=== PATIENT | female | born 1980 | race Caucasian/White ===

== ENCOUNTER 2016-06-08 06:11 | Observation (INO) | payer BC ==
[2016-06-07 08:46] VITALS: BMI 31.6
[~2016-06-08 06:11] MED LIST: DEXAMETHASONE SOD PHOSPHATE 10 MG/ML 1 ML VIAL IV ONE; FAMOTIDINE 20 MG/2 ML VIAL IV PRN; HYDROmorphone 1 MG/ML 1 ML SYRINGE IVP PRN; LIDOCAINE 1% 20 ML VIAL (10MG/ML) FOR IV START INTRADERMA PRN; MIDAZOLAM 2 MG/2 ML VIAL IV PRN; SCOPOLAMINE 1.5MG/72HR PATCH TRANSDERM ONE; ceFAZolin 2 GM in SODIUM CHLORIDE 0.9% 100 ML IVPB ONE
[2016-06-08] MEDS: LACTATED RINGERS 1,000 ML IV SCH ×4 (06:45→20:44)
[2016-06-08] MEDS ORDERED: PROPOFOL 10 MG/ML 20 ML VIAL IV ONE (07:35)
[2016-06-08] MEDS ORDERED: MIDAZOLAM 2 MG/2 ML VIAL ONE (07:35)
[2016-06-08] MEDS ORDERED: fentaNYL (PF) 50 MCG/ML 2 ML AMP ONE (07:35)
[2016-06-08] MEDS ORDERED: SUCCINYLCHOLINE CHLORIDE 100 MG/5 ML SYR IV ONE (07:35)
[2016-06-08] MEDS ORDERED: LIDOCAINE 1% INJ 10MG/ML (20 ML MDV) ONE (07:35)
[2016-06-08] MEDS ORDERED: PHENYLEPHRINE-0.9% NACL SYG 1 MG/10 ML SYRINGE ONE (07:35)
[2016-06-08] MEDS ORDERED: MORPHINE SULFATE (PF) 0.3 MG/0.3 ML SYR ONE (07:35)
[2016-06-08] MEDS ORDERED: VASOPRESSIN 20 UNIT/ML 1 ML VIAL IM ONE (08:00)
[2016-06-08] MEDS ORDERED: BACITRACIN 500 UNIT/GM OINT 28.4 GM TUBE TOPICAL ONE (08:00)
[2016-06-08] MEDS ORDERED: ZOLPIDEM 5 MG TAB PO PRN (08:38)
[2016-06-08] MEDS ORDERED: ONDANSETRON 4 MG/2 ML VIAL IVP PRN (08:38)
[2016-06-08] MEDS ORDERED: SIMETHICONE 80 MG CHEWABLE PO PRN (08:38)
[2016-06-08] MEDS ORDERED: Acetaminophen-Codeine 300-30mg TAB PO PRN ×2 (08:38)
[2016-06-08] MEDS ORDERED: METOCLOPRAMIDE 5 MG/ML 2 ML VIAL IVP PRN (08:38)
[2016-06-08] MEDS ORDERED: IBUPROFEN 600 MG TAB PO PRN (08:38)
--- NOTE | 2016-06-08 08:48 | P.OP ---
Date of Procedure: 06/08/16 Preoperative Diagnosis: #1. Menometrorrhagia #2. Dysmenorrhea #3. Failed endometrial ablation Postoperative Diagnosis: Same Procedure(s) Performed: #1. Vaginal hysterectomy Anesthesia: LELA Surgeon: Cuauhtemoc Meyers Gyro Mechanic #1: Tigist Hammer Estimated Blood Loss (ml): 75 IV fluids (ml): 800 Urine output (ml): 100 Pathology: other (Uterus) Condition: stable Disposition: PACU Operative Findings: Intraoperatively, there was noted to be a small cystocele and rectocele which were not recognized in the preoperative phase. Neither was the significant enough to warrant repairing immediately. The bilateral ovaries were seen and entirely normal. There is no evidence of any adhesive disease or other pathology in the pelvis. Description of Procedure: The patient was prepped and draped in usual fashion after general endotracheal anesthesia was administered by the anesthesiologist. A weighted speculum was placed in the anterior lip the cervix grasped with a single-tooth tenaculum. The bladder was drained of approximately 100 mL of clear carlos urine. The cervicovaginal mucosa was then infused with diluted vasopressin solution. It was then incised circumferentially around the cervix and reflected distally both sharply and bluntly. The posterior peritoneum was identified and incised sharply using the Bergeron scissors. It was then tagged with a stitch of 2-0 Vicryl for later closure. The short weighted speculum was replaced with the long weighted speculum. Further reflection of the vaginal mucosal tissues was carried out to allow isolation of the pedicles. The uterosacral pedicle was clamped on each side with a curved Dani-[place] clamp, cut, and suture- ligated with a transfixion stitch of 0 Vicryl. Several bites were then taken along the cardinal ligament towards the utero-ovarian ligament on each side with curved Dani-[place] clamps, each being cut and suture-ligated with a transfixion stitch of 0 Vicryl. After approximately 3 bites on each side, the utero ovarian ligament the could be isolated. The uterus was inverted posteriorly and the each utero-ovarian ligament clamped with a curved Dani- [place] clamp, cut, and suture-ligated with a transfixion stitch of 0 Vicryl followed by a free tie of 0 Vicryl. The left uterosacral ligament was noted to have a area of moderate bleeding that had escaped the tie. It was grasped with the an Allis and brought into view again at which time a curved Dani- [place] clamp was placed across it just above the level of the first tie allowing another state transfixion stitch of 0 Vicryl replaced which secured the bleeding. Both ovaries were examined and found to be normal. Once hemostasis at the ovarian pedicles was the noted to be adequate, they were released into the abdomen. The long weighted speculum was then replaced with the short weighted speculum and the previously placed stitch of 2-0 Vicryl was utilized to circumferentially close the parietal peritoneum in a pursestring stitch. The vascular pedicles were then examined and found to be hemostatic. There was some ongoing oozing at the vaginal cuff which was made hemostatic with the Bovie and with closure. The uterosacral ligaments were then passed to the contralateral side including the ligament and mucosa from each side to the other in a modified Russell's culdoplasty. The intervening open vaginal mucosa was then closed with interrupted fruuih-jy-jianr stitches of 0 Vicryl. A small dogear of tissue at the posterior aspect of the cuff was made hemostatic with the Bovie. Hemostasis appeared to be excellent. The vagina was then packed with one-inch iodophor gauze covered with bacitracin ointment and the catheter replaced within the bladder at which time clear urine was noted. Allis her mentation was removed. Estimated blood loss for the case was approximately 75 mL. There were no complications. All sponge, instrument, and needle counts were correct. The patient tolerated the procedure well and proceeded to the recovery room in stable condition.
[2016-06-08] MEDS: KETOROLAC 30 MG/ML 1 ML VIAL IVP PRN ×3 (09:22→22:48)
[2016-06-08] MEDS ORDERED: LACTATED RINGERS 1,000 ML IV ONE ×2 (09:30)
[2016-06-08] MEDS ORDERED: NALOXONE 0.4 MG/ML 1 ML VIAL IV PRN (09:52)
[2016-06-08] MEDS ORDERED: NALBUPHINE 10 MG/ML AMPUL IV PRN (09:52)
[2016-06-08] MEDS ORDERED: MORPHINE SULFATE 4 MG/ML SYRINGE IVP PRN (09:52)
[2016-06-08] MEDS ORDERED: PROMETHAZINE INJ 6.25 MG in SODIUM CHLORIDE 0.9% 50 ML IVPB PRN (09:52)
[2016-06-08] MEDS ORDERED: MEPERIDINE 50 MG/ML SYRINGE IVP ONE (09:54)
[2016-06-08] MEDS: diphenhydrAMINE 50 MG/ML 1 ML VIAL IVP PRN ×3 (10:29→22:28)
[2016-06-08] MEDS: SENNOSIDES-DOCUSATE SODIUM 1 EACH TAB PO SCH ×2 (13:54→20:45)
[2016-06-09] MEDS: LACTATED RINGERS 1,000 ML IV SCH ×2 (06:57→06:58)
[2016-06-09 07:30] LABS: Basophils % (A) 0 %; CH 32.1; CHCM 33.9; Eosinophils # (A) 0.1 k/uL (0-0.7); Eosinophils % (A) 1 %; HCT 35.4 % (34.0-46.0); HDW 2.45; HGB 11.7 gm/dL (11.4-16.0); Luc # (Auto) 0.17; Luc % (Auto) 2; Lymphocytes # (A) 2.2 k/uL (1.0-4.8); Lymphocytes % (A) 25 %; MCH 31.5 pg (25.0-35.0); MCHC 33.2 g/dL (31.0-37.0); MCV 94.9 fL (80.0-100.0); Mean Platelet Volume 7.4; Monocytes # (A) 0.7 k/uL (0-1.0); Monocytes % (A) 8 %; Neutrophils # (A) 5.4 k/uL (1.3-7.7); Neutrophils % (A) 64 %; RBC 3.73 m/uL (3.80-5.40); RDW 12.2 % (11.5-15.5); WBC 8.5 k/uL (3.8-10.6); WBC (Perox) 9.08
[2016-06-09] MEDS: diphenhydrAMINE 50 MG/ML 1 ML VIAL IVP PRN (08:06)
[2016-06-09] MEDS: SENNOSIDES-DOCUSATE SODIUM 1 EACH TAB PO SCH (09:02)
[2016-06-09] MEDS: KETOROLAC 30 MG/ML 1 ML VIAL IVP PRN (09:05)
[2016-06-09 10:13] VITALS: BP 99/56; PULSE 68; RESP 17; TEMP 98
--- NOTE | 2016-06-09 11:17 | P.DS ---
Providers Date of admission: 06/08/16 22:50 Expected date of discharge: 06/09/16 Attending physician: Cuauhtemoc Meyers [facility] Course: This is a 35-year-old white female 2 para 2001 who presented with a long -standing history of severe dysmenorrhea and menometrorrhagia. She underwent NovaSure ablation with no results. Discussion with her primary care physician went to the decision of vaginal hysterectomy. Please see dictated history and physical for details. Patient underwent vaginal hysterectomy and did well intraoperatively. Estimate a blood loss 75 mL's. Ovaries normal bilaterally and therefore were kept in situ per her wishes. Please see dictated operative note for details. This morning the patient is doing well. She is voiding, ambulating, passing flatus without difficulty. She is tolerating regular diet. She complained of some itching from the Duramorph spinal, but that has improved this morning. Pain is well tolerated. There is only scant vaginal drainage. Vaginal packing and Alfonso catheter has been removed. Vital signs are stable and patient remained afebrile. Energy level is good. She is being discharged home therefore today in very good condition. She will follow-up in the office in 2 weeks. I have reminded her no intercourse, tampons or douching. She will use ymjn-wwo-kheicye Motrin products, and Dr. Meyers has also given her prescription for Tylenol No. 3 to be used as needed for pain. I've asked her to call with any fevers shakes or chills, foul smelling or copious drainage. She will call with any pain not alleviated by the above regime. She is reminded no heavy lifting, no car driving for 2 weeks , and no heavy lifting greater than a gallon of milk. Call with any problems or concerns. Plan - Discharge Summary Discharge Medication List Calcium Carbonate [Tums] 500 mg PO TID PRN 06/07/16 [History] Ibuprofen [Motrin] 800 mg PO TID PRN 06/07/16 [History] L.acidoph,Paracasei, B.lactis [Probiotic] 1 cap PO DAILY 06/07/16 [History] N P Thyroid 30 Mg 30 mg SL HS 06/07/16 [History] N P Thyroid 30 Mg 60 mg SL QAM 06/07/16 [History] Testosterone Pellets 1 dose SUBDERMAL DIRECTED 06/07/16 [History] Follow up Appointment(s)/Referral(s): Cuauhtemoc Meyers MD [STAFF PHYSICIAN] - 2 Weeks Patient Instructions/Handouts: *Surgery [facility] - Scopalamine Patch Instructions Discharge Disposition: HOME SELF-CARE
--- NOTE | 2016-06-09 17:02 | P.PN ---
Progress Note - Text Date:06/09 Time:750 Patient is status post vaginal hystrectomy. Patient seen this morning with VAS score of 2. c/o of pruritus, no c/o nausea/vomiting, comfortable and doing well.
== END 2016-06-09 11:57 | disposition home or self-care (01) ==
LOC: OR 06:11 → 6PED 08:27 → OR 22:50
PROVIDERS: ADMIT Obstetrics & Gynecology; ATTEND Obstetrics & Gynecology
DX: N92.1 Excessive and frequent menstruation with irregular cycle (principal); N94.6 Dysmenorrhea, unspecified; N87.9 Dysplasia of cervix uteri, unspecified; Z88.5 Allergy status to narcotic agent; Z91.040 Latex allergy status; Z79.899 Other long term (current) drug therapy; N81.6 Rectocele; N81.10 Cystocele, unspecified
CPT/HCPCS: 58260; 81025; 86900; 86901; 85025; 86850; 88307; G0378 ×2; J2250; J1200 ×2; J1100; J2175; J0690; J2001; J2274; J3010; J1885 ×2; J2370; J0330; J2704; 96361; 96374; 96375

== ENCOUNTER → 2017-01-25 | Outpatient (CLI) | payer BC ==
--- NOTE | 2017-01-25 11:36 | FL ---
EXAMINATION TYPE: FL barium swallow w video DATE OF EXAM: 01/25/2017 MODIFIED SWALLOW / DEGLUTITION STUDY CLINICAL HISTORY: Dysphagia. TECHNIQUE: Deglutition study is performed utilizing thin liquid barium, honey and nectar thick liqui d barium, barium thick applesauce, and barium coated cracker. A total of 59 seconds of fluoroscopic t susan was utilized during procedure. Approximately 10 cine sequences were performed but 0 images are sa delores to PACS. COMPARISON: None. FINDINGS: The oral and pharyngeal phases show satisfactory initiation and propagation with all modali ties tested. Normal mastication is seen with solid modalities tested. There is no evidence of penet ration or aspiration with any modality tested. No significant pharyngeal residue was appreciated. IMPRESSION: Normal deglutition study. Please refer to speech therapist notes for further details if necessary.
== END | disposition home or self-care (01) ==
LOC: RADFLMAIN 10:54
PROVIDERS: ATTEND Otolaryngology
DX: R13.10 Dysphagia, unspecified (principal)
CPT/HCPCS: 74230

== ENCOUNTER → 2017-05-14 | Outpatient (CLI) | payer BC ==
--- NOTE | 2017-05-15 07:19 | XR ---
EXAM TYPE: LUMBAR SPINE X RAY SERIES COMPARISON: NONE HISTORY: Pain TECHNIQUE: 4 views are submitted. FINDINGS: Alignment is anatomic. The pedicles are intact. The transverse processes are intact. There is no s pondylolysis or spondylolisthesis. Surgical clips in the gallbladder fossa noted. Degenerative disc disease L5-S1. IMPRESSION: 1. Degenerative disc disease L5-S1. Consider MRI follow-up..
== END | disposition home or self-care (01) ==
LOC: RADXRMAIN 17:26
PROVIDERS: ATTEND Nurse Practitioner Family
DX: M51.17 Intervertebral disc disorders with radiculopathy, lumbosacral region (principal)
CPT/HCPCS: 72110

== ENCOUNTER → 2017-06-13 | Outpatient (CLI) | payer BC ==
--- NOTE | 2017-06-13 21:14 | MR ---
EXAMINATION TYPE: MR sacrum/coccyx wo/w con DATE OF EXAM: 06/13/2017 COMPARISON: Lumbosacral spine 05/14/2017 HISTORY: Low back/tailbone pain CONTRAST: 0 mL intravenous Gadavist. TECHNIQUE: Multiplanar, multisequence images of the sacrococcygeal spine were acquired. FINDINGS: Sacroiliac joints appear intact. The sacrum appears intact. Superior and inferior sacral canal appear normal. Signal through the sacrum and coccyx appears normal musculature surrounding the lower pelvis appears normal Incidental note is made of a moderate size central disc herniation at L5-S1 with moderate anterior th ecal sac compression. This extends superior to the mid L5 level. Large air collection is anterior to the sacrum in the presacral space compatible with rectum. IMPRESSION: 1. No suspicious changes to suggest sacral or coccygeal fracture. 2. Incidental note made of a moderately large central disc herniation extending from the L5-S1 level centrally to reside posterior to the L5 vertebral body. This has moderate anterior thecal sac filiberto tierra.
== END | disposition home or self-care (01) ==
LOC: RADMRIMAIN 20:02
PROVIDERS: ATTEND Psychiatry & Neurology Neurology
DX: M51.27 Other intervertebral disc displacement, lumbosacral region (principal); M53.3 Sacrococcygeal disorders, not elsewhere classified; M46.1 Sacroiliitis, not elsewhere classified; D16.8 Benign neoplasm of pelvic bones, sacrum and coccyx
CPT/HCPCS: 72197; A9581

== ENCOUNTER → 2017-09-06 | Outpatient (CLI) | payer BC ==
--- NOTE | 2017-09-06 10:06 | MM ---
Reason for exam: clinical finding. Last mammogram was performed 4 years and 6 months ago. History: Family history of breast cancer in maternal aunt at age 50. Took hormonal contraceptives for 11 years beginning at age 19. Physical Findings: Nurse did not find any significant physical abnormalities on exam. MG 3D Diag Mammo W/Cad [facility]AYO Bilateral CC and MLO view(s) were taken. Prior study comparison: March 16, 2013, CAD bilateral diagnostic mammogram. December 21, 2011, CAD bilateral diagnostic mammogram. There are scattered fibroglandular densities. No suspicious abnormality. These results were verbally communicated with the patient and result sheet given to the patient on 09/06/17. ASSESSMENT: Negative, BI-RAD 1 RECOMMENDATION: Routine screening mammogram of both breasts in 1 year. Manage on a clinical basis with regard to intermittent milky left nipple discharge.
--- NOTE | 2017-09-06 10:07 | USB ---
Reason for exam: clinical finding. History: Family history of breast cancer in maternal aunt at age 50. Took hormonal contraceptives for 11 years beginning at age 19. US Breast LT Left complete breast ultrasound includes all four quadrants, the retroareolar region and axilla. Finding demonstrates no cystic or solid lesion seen. No suspicious sonographic finding. These results were verbally communicated with the patient and result sheet given to the patient on 09/06/17. ASSESSMENT: Negative, BI-RAD 1 RECOMMENDATION: Routine screening mammogram of both breasts in 1 year. Manage patient on a clinical basis.
== END | disposition home or self-care (01) ==
LOC: RADMAMWWP 08:54
PROVIDERS: ATTEND Obstetrics & Gynecology
DX: N64.4 Mastodynia (principal); N64.52 Nipple discharge
CPT/HCPCS: 77062; 77066

== ENCOUNTER 2017-09-15 14:49 | Emergency (ER) | payer BC ==
[2017-09-15] MEDS ORDERED: KETOROLAC 60 MG/2 ML VIAL IM STA (15:24)
--- NOTE | 2017-09-15 16:00 | ED ---
General Adult HPI - General Chief complaint: Back Pain/Injury Stated complaint: Back Pain Time Seen by Provider: 09/15/17 15:14 Source: patient, RN notes reviewed Mode of arrival: ambulatory Limitations: no limitations - History of Present Illness Initial comments: Patient 36-year-old female presenting to the emergency room today with a chief complaint of increased lower back pain. She does admit to some radiation to the right hip. She states that yesterday she went to bend down quickly to flip a pillow back onto the couch. She states she felt a little bit of pain at that time. She states she did not think much of it. She states that today when she went to grab a piece of paper tone the kitchen and then turned and twisted quickly felt an instant increased pain in the lower back radiating towards the right hip. She states that pain is worse with any movements of turning and twisting or specifically bending forward. Patient states that she did try a muscle relaxer Flexeril at home with little relief of the symptoms. She is not taking nothing else for the pain. Denies any bowel or bladder incontinence retention. Denies any saddle anesthesia. Patient denies any recent fever, chills, shortness of breath, chest pain, abdominal pain, nausea or vomiting, numbness tingling, dysuria or hematuria, headaches or visual changes, or any other complaints. - Related Data Home Medications Medication Instructions Recorded Confirmed Calcium Carbonate [Tums] 500 mg PO TID PRN 06/07/16 06/09/16 Ibuprofen [Motrin] 800 mg PO TID PRN 06/07/16 06/09/16 L.acidoph,Paracasei, B.lactis 1 cap PO DAILY 06/07/16 06/09/16 [Probiotic] N P Thyroid 30 Mg 30 mg SL HS 06/07/16 06/09/16 N P Thyroid 30 Mg 60 mg SL QAM 06/07/16 06/09/16 Testosterone Pellets 1 dose SUBDERMAL DIRECTED 06/07/16 06/09/16 Previous Rx's Medication Instructions Recorded Acetaminophen-Codeine 300-30mg 1 each PO Q6H PRN #12 tablet 09/15/17 [Tylenol #3] Cyclobenzaprine [Flexeril] 10 mg PO TID #20 tab 09/15/17 Dexamethasone 0.75 mg PO DIRECTED #12 tablet 09/15/17 Ibuprofen [Motrin] 800 mg PO Q6HR #30 tab 09/15/17 Allergies Allergy/AdvReac Type Severity Reaction Status Date / Time hydrocodone bitartrate Allergy Itching Verified 09/15/17 14:58 [From Streetman] latex Allergy Rash/Hives Verified 09/15/17 14:58 sumatriptan [From Imitrex] Allergy numbness Verified 09/15/17 14:58 sumatriptan succinate Allergy numbness Verified 09/15/17 14:58 [From Imitrex] Review of Systems ROS Statement: Those systems with pertinent positive or pertinent negative responses have been documented in the HPI. ROS Other: All systems not noted in ROS Statement are negative. Past Medical History Past Medical History: Fibromyalgia Additional Past Medical History / Comment(s): buldging disc, ra History of Any Multi-Drug Resistant Organisms: None Reported Past Surgical History: Cholecystectomy, Hysterectomy Additional Past Surgical History / Comment(s): dermoid removal left ovary Past Anesthesia/Blood Transfusion Reactions: No Reported Reaction Additional Past Anesthesia/Blood Transfusion Reaction / Comment(s): MOTHER = PONV Past Psychological History: No Psychological Hx Reported Smoking Status: Never smoker Past Alcohol Use History: Occasional Past Drug Use History: None Reported - Past Family History Mother Family Medical History: No Reported History Additional Family Medical History / Comment(s): Father CHF, Diabetes Type 2, Kidney Failure General Exam - General Exam Comments Initial Comments: General: The patient is awake and alert, in no distress, and does not appear acutely ill. Eye: Pupils are equal, round and reactive to light, extra-ocular movements are intact. No nystagmus. There is normal conjunctiva bilaterally. No signs of icterus. Ears, nose, mouth and throat: There are moist mucous membranes and no oral lesions. Neck: The neck is supple, there is no tenderness or JVD. Musculoskeletal: Normal appearance of the thoracic and lumbar spine. No step- off deformity. Patient does have mild tenderness paravertebrally to the right side of the lower lumbar spine. Strength 5/5. Sensation intact. Pulses equal bilaterally 2+. Neurological: A&O x 3. CN II-XII intact, There are no obvious motor or sensory deficits. Coordination appears grossly intact. Speech is normal. Skin: Skin is warm and dry and no rashes or lesions are noted. Psychiatric: Cooperative, appropriate mood & affect, normal judgment. Limitations: no limitations Course Vital Signs 09/15/17 09/15/17 14:55 16:36 Temperature 97.3 F L 97.3 F L Pulse Rate 80 74 Respiratory 18 16 Rate Blood Pressure 113/75 101/62 O2 Sat by Pulse 98 98 Oximetry Medical Decision Making - Medical Decision Making Patient's x-rays of been reviewed are negative for any acute abnormality. Does show continuing degeneration of L5-S1. Patient given Toradol shot here in the emergency room doesn't to some improvement. Patient has no bowel or bladder incontinence retention. No saddle anesthesia. Signs and symptoms of concern and reason for returning to the emergency room were discussed with the patient. Patient at this time will be treated with musculoskeletal anti-inflammatories , steroids, and also given a prescription for Tylenol 3 for pain. Advised to follow-up the family doctor the next 2 days. Advised return for any other concerns. She states understanding and is in agreement. Disposition Clinical Impression: Acute low back pain Disposition: HOME SELF-CARE Condition: Good Instructions: Acute Low Back Pain (ED) Additional Instructions: Please use medication as discussed. Please follow-up with family doctor in the next 2 days. Please return to emergency room if the symptoms increase or worsen or for any other concerns. Prescriptions: Acetaminophen-Codeine 300-30mg [Tylenol #3] 1 each PO Q6H PRN #12 tablet PRN Reason: Pain Cyclobenzaprine [Flexeril] 10 mg PO TID #20 tab Dexamethasone 0.75 mg PO DIRECTED #12 tablet Ibuprofen [Motrin] 800 mg PO Q6HR #30 tab Is patient prescribed a controlled substance at d/c from ED?: No Referrals: Rajan Muller III, MD [Primary Care Provider] - 1-2 days Time of Disposition: 16:57
--- NOTE | 2017-09-15 16:44 | XR ---
EXAMINATION TYPE: XR lumbar spine 2 or 3V DATE OF EXAM: 09/15/2017 COMPARISON: 05/14/2017 HISTORY: Pain since bending over TECHNIQUE: Three-view lumbar spine FINDINGS: There 5 lumbar-type vertebral bodies. The pedicles are intact. Vertebral body heights are p reserved. Mild narrowing of the L5-S1 disc height is present. IMPRESSION: 1. Mild degenerative disc changes L5-S1. 2. Exam is stable from the comparison study
[2017-09-15 17:20] VITALS: BP 106/57; PULSE 72; RESP 18; TEMP 98
== END 2017-09-15 17:15 | disposition home or self-care (01) ==
LOC: EC 14:49
DX: M54.5 Low back pain (principal); M51.37 Other intervertebral disc degeneration, lumbosacral region; Z79.899 Other long term (current) drug therapy; Z88.5 Allergy status to narcotic agent; Z91.040 Latex allergy status; Z88.8 Allergy status to other drugs, medicaments and biological substances
CPT/HCPCS: 99283; 96372; 72100; J1885

== ENCOUNTER → 2018-08-18 | Outpatient (CLI) | payer BC ==
--- NOTE | 2018-08-19 07:05 | MR ---
EXAMINATION TYPE: MR brain wo con DATE OF EXAM: 08/18/2018 COMPARISON: NONE HISTORY: Migraines TECHNIQUE: Multiplanar, multisequence images of the brain and brainstem is performed without intravenous contras t. FINDINGS: Diffusion weighted images demonstrate no evidence of a recent infarct or other diffusion ab normality. There is no extra-axial fluid collection. There is a posterior right frontal deep white m atter 1.0 x 0.8 x 1.1 cm area of T2/FLAIR hyperintensity within the ibrahim radiata at the medial aspe ct of the precentral gyrus. This is solitary with no other foci of abnormal white matter signal. The ventricular system and cisternal spaces are normal in size and appearance. The brain volume is age a ppropriate. Midline structures demonstrate normal morphology. The craniocervical junction appears within normal limits. Post contrast images demonstrate no abnormal enhancement. The dural venous sinuses appear pa tent. Scant mucosal thickening is seen within the left maxillary and ethmoid sinuses. The remaining v isualized sinuses are clear and the globes are intact. Minimal amount of fluid is present within the inferior right maxillary sinuses. IMPRESSION: Solitary deep white matter lesion in the right frontal lobe. Differential considerations are for demyelinating disease, sequela of migraine, or less likely vasculitis.
== END | disposition home or self-care (01) ==
LOC: RADMRIMAIN 13:37
PROVIDERS: ATTEND Family Medicine
DX: G43.909 Migraine, unspecified, not intractable, without status migrainosus (principal); R93.0 Abnormal findings on diagnostic imaging of skull and head, not elsewhere classified; G93.9 Disorder of brain, unspecified
CPT/HCPCS: 70551

== ENCOUNTER → 2018-11-04 | Outpatient (CLI) | payer BC ==
--- NOTE | 2018-11-05 11:11 | MM ---
Reason for exam: screening (asymptomatic). Last mammogram was performed 1 year and 2 months ago. History: Family history of breast cancer in maternal aunt at age 50. Took hormonal contraceptives for 11 years beginning at age 19. Physical Findings: A clinical breast exam by your physician is recommended on an annual basis and results should be correlated with mammographic findings. MG 3D Screening Mammo W/Cad Bilateral CC and MLO view(s) were taken. Prior study comparison: September 06, 2017, bilateral MG 3d diag mammo w/cad CHAYO. March 16, 2013, CAD bilateral diagnostic mammogram. The breast tissue is heterogeneously dense. This may lower the sensitivity of mammography. There is no discrete abnormality. No significant changes when compared with prior studies. ASSESSMENT: Negative, BI-RAD 1 RECOMMENDATION: Routine screening mammogram of both breasts at age 40.
== END | disposition home or self-care (01) ==
LOC: RADMAMWWP 10:33
PROVIDERS: ATTEND Obstetrics & Gynecology
DX: Z12.31 Encounter for screening mammogram for malignant neoplasm of breast (principal)
CPT/HCPCS: 77063; 77067

== ENCOUNTER 2019-05-02 17:47 | Emergency (ER) | payer BC ==
[2019-05-02 17:52] VITALS: TEMP 98
[2019-05-02] MEDS ORDERED: SODIUM CHLORIDE 0.9% 500 ML 500 ML IV STA (18:13)
[2019-05-02] MEDS ORDERED: KETOROLAC 30 MG/ML 1 ML VIAL IVP STA (18:14)
--- NOTE | 2019-05-02 18:34 | ED ---
Chest Pain HPI - General Chief Complaint: Chest Pain Stated Complaint: SOB/Chest Pain Time Seen by Provider: 05/02/19 17:54 Source: patient Mode of arrival: ambulatory Limitations: no limitations - History of Present Illness Initial Comments: Patient is a 38-year-old female presenting to the emergency Department with complaints of shortness of breath as well as chest tightness that happened approximately 3 hours prior to arrival. Patient states she was sitting watching TV when she had a sudden onset of chest tightness as well as shortness of breath . Patient states she does get some relief with leaning forward. She states the pain has subsided slightly since initial onset. She states he's been dealing with mild shortness of breath for the last month since receiving a lumbar puncture at the beginning of March. She is also being worked up for possible rheumatoid issues as well as polymyositis. She denies history of heart disease, blood clots. She denies chance of secondary to hysterectomy. Patient denies fever, chills, cough, nausea, vomiting. She has no other complaints at this time. Upon arrival to the ER, vital signs are stable. - Related Data Home Medications Medication Instructions Recorded Confirmed Calcium Carbonate [Tums] 500 mg PO TID PRN 06/07/16 06/09/16 Ibuprofen [Motrin] 800 mg PO TID PRN 06/07/16 06/09/16 L.acidoph,Paracasei, B.lactis 1 cap PO DAILY 06/07/16 06/09/16 [Probiotic] N P Thyroid 30 Mg 30 mg SL HS 06/07/16 06/09/16 N P Thyroid 30 Mg 60 mg SL QAM 06/07/16 06/09/16 Testosterone Pellets 1 dose SUBDERMAL DIRECTED 06/07/16 06/09/16 Previous Rx's Medication Instructions Recorded Acetaminophen-Codeine 300-30mg 1 each PO Q6H PRN #12 tablet 09/15/17 [Tylenol #3] Cyclobenzaprine [Flexeril] 10 mg PO TID #20 tab 09/15/17 Dexamethasone 0.75 mg PO DIRECTED #12 tablet 09/15/17 Ibuprofen [Motrin] 800 mg PO Q6HR #30 tab 09/15/17 Allergies Allergy/AdvReac Type Severity Reaction Status Date / Time hydrocodone bitartrate Allergy Itching Verified 05/02/19 17:52 [From [place]] latex Allergy Rash/Hives Verified 05/02/19 17:52 sumatriptan [From Imitrex] Allergy numbness Verified 05/02/19 17:52 sumatriptan succinate Allergy numbness Verified 05/02/19 17:52 [From Imitrex] Review of Systems ROS Statement: Those systems with pertinent positive or pertinent negative responses have been documented in the HPI. ROS Other: All systems not noted in ROS Statement are negative. EKG Findings - EKG Comments: EKG Findings:: Ventricular rate 60, P or interval 136, QTC 414. Normal sinus rhythm. No acute ST segment changes. Past Medical History Past Medical History: Fibromyalgia Additional Past Medical History / Comment(s): chronic back pain, "connective tissue issues" History of Any Multi-Drug Resistant Organisms: None Reported Past Surgical History: Cholecystectomy, Hysterectomy Additional Past Surgical History / Comment(s): dermoid removal left ovary Past Anesthesia/Blood Transfusion Reactions: No Reported Reaction Additional Past Anesthesia/Blood Transfusion Reaction / Comment(s): MOTHER = PONV Past Psychological History: No Psychological Hx Reported Smoking Status: Never smoker Past Alcohol Use History: Occasional Past Drug Use History: None Reported - Past Family History Mother Family Medical History: No Reported History Additional Family Medical History / Comment(s): Father CHF, Diabetes Type 2, Kidney Failure General Exam - General Exam Comments Initial Comments: GENERAL: Well-appearing, well-nourished and in no acute distress. HEAD: Atraumatic, normocephalic. EYES: Pupils equal round and reactive to light, extraocular movements intact, sclera anicteric, conjunctiva are normal. ENT: TMs normal, nares patent, oropharynx clear without exudates. Moist mucous membranes. NECK: Normal range of motion, supple without lymphadenopathy or JVD. LUNGS: Breath sounds clear to auscultation bilaterally and equal. No wheezes rales or rhonchi. Mild tenderness to palpation of the lower sternum. HEART: Regular rate and rhythm without murmurs, rubs or gallops. ABDOMEN: Soft, nontender, normoactive bowel sounds. No guarding, no rebound. No masses appreciated. : Deferred EXTREMITIES: Normal range of motion, no pitting or edema. No clubbing or cyanosis. NEUROLOGICAL: Normal speech, normal gait. PSYCH: Normal mood, normal affect. SKIN: Warm, Dry, normal turgor, no rashes or lesions noted. Limitations: no limitations Course Vital Signs 05/02/19 05/02/19 17:49 19:10 Temperature 98 F Pulse Rate 62 50 L Respiratory 18 24 Rate Blood Pressure 123/82 108/64 O2 Sat by Pulse 100 100 Oximetry Chest Pain MDM - MDM Patient is a 38-year-old female presenting with chest tightness and shortness of breath for 3 hours. She denies history of heart disease or blood clots. Vital signs are stable. EKG shows no acute abnormalities. Lab work is unremarkable, d-dimer is normal, troponin is normal. Chest x-ray shows no acute abnormalities. Urine is normal. I discussed his findings with the patient. Patient was given Toradol and reports improvement in her symptoms. She has been feeling much improvement during her ER stay. I discussed with patient this is most likely related to muscle cramping and spasms and possible inflammation. I suggested continue with anti-inflammatories for the next few days and then follow up with her PCP. She is in agreement with this plan of care. Strict return parameters were discussed with the patient she verbalized understanding. Case discussed with Dr. Velasquez. Disposition Clinical Impression: Shortness of breath, Costochondritis, Atypical chest pain Disposition: HOME SELF-CARE Condition: Stable Instructions (If sedation given, give patient instructions): Costochondritis (ED) Additional Instructions: Please return to the Emergency Department if symptoms worsen or any other concerns. Continue with trial of anti-inflammatories as discussed. Follow-up with PCP in 1- 3 days. Is patient prescribed a controlled substance at d/c from ED?: No Referrals: Maya Spence MD [Primary Care Provider] - 1-2 days
[2019-05-02 18:42] LABS: Appearance,Urine Clear (Clear); Bilirubin,Urine Negative (Negative); Blood,Urine Negative (Negative); Color,Urine Light Yellow; Glucose,Urine (UA) Negative (Negative); Ketones,Urine Negative (Negative); Leukocyte Esterase,Urine Negative (Negative); Nitrite,Urine Negative (Negative); PH, Urine 5.5 (5.0-8.0); Protein,Urine Negative (Negative); Specific Gravity,Urine 1.005 (1.001-1.035); Urobilinogen,Urine <2.0 mg/dL (<2.0)
[2019-05-02 18:54] LABS: ALT 16 U/L (4-34); AST 22 U/L (14-36); African American GFR (CKD) >90 (>60 ml/min/1.73 sqM); Albumin 4.6 g/dL (3.5-5.0); Alkaline Phosphatase 39 U/L (38-126); Anion Gap 5 mmol/L; Blood Urea Nitrogen 17 mg/dL (7-17); Calcium 9.6 mg/dL (8.4-10.2); Carbon Dioxide 30 mmol/L (22-30); Chloride 105 mmol/L (98-107); Glucose 80 mg/dL (74-99); Magnesium 2.2 mg/dL (1.6-2.3); Non-African American GFR(CKD) >90 (>60 ml/min/1.73 sqM); Potassium 4.7 mmol/L (3.5-5.1); Sodium 140 mmol/L (137-145); Total Bilirubin 0.8 mg/dL (0.2-1.3); Total Protein 7.7 g/dL (6.3-8.2)
[2019-05-02 18:57] LABS: Basophils % (A) 1 %; Eosinophils # (A) 0.1 k/uL (0-0.7); Eosinophils % (A) 1 %; HCT 40.3 % (34.0-46.0); HGB 13.8 gm/dL (11.4-16.0); Lymphocytes # (A) 1.8 k/uL (1.0-4.8); Lymphocytes % (A) 28 %; MCH 32.6 pg (25.0-35.0); MCHC 34.3 g/dL (31.0-37.0); MCV 95.2 fL (80.0-100.0); Mean Platelet Volume 7.7; Monocytes # (A) 0.3 k/uL (0-1.0); Monocytes % (A) 5 %; Neutrophils # (A) 4.1 k/uL (1.3-7.7); Neutrophils % (A) 64 %; Platelet Count 256 k/uL (150-450); RBC 4.23 m/uL (3.80-5.40); RDW 11.1 % (11.5-15.5); WBC 6.4 k/uL (3.8-10.6)
--- NOTE | 2019-05-02 18:59 | XR ---
EXAMINATION TYPE: XR chest 2V DATE OF EXAM: 05/02/2019 COMPARISON: 04/24/2019 HISTORY: Chest pain TECHNIQUE: FINDINGS: Heart and mediastinum are normal. Lungs are clear. Diaphragm is normal. Bony thorax appears normal. IMPRESSION: Normal chest. No change.
[2019-05-02 19:00] LABS: D-Dimer 0.44 mg/L FEU (<0.60); Partial Thromboplastin Time 23.7 sec (22.0-30.0); Prothrombin Time 10.6 sec (9.0-12.0)
[2019-05-02 19:18] VITALS: BP 108/64; PULSE 50; RESP 24
== END 2019-05-02 20:15 | disposition home or self-care (01) ==
LOC: EC 17:47
DX: M94.0 Chondrocostal junction syndrome [Tietze] (principal); Z88.5 Allergy status to narcotic agent; Z91.040 Latex allergy status; Z88.8 Allergy status to other drugs, medicaments and biological substances
CPT/HCPCS: 36415; 93005; 85379; 80053; 83735; 84484; 85025; 85610; 85730; 81003; 71046; 99285; 96374; 96361; J1885

== ENCOUNTER → 2019-05-06 | Outpatient (CLI) | payer BC ==
--- NOTE | 2019-05-07 01:48 | MR ---
EXAMINATION TYPE: MR pelvis wo con DATE OF EXAM: 05/06/2019 COMPARISON: None HISTORY: Lower back/pelvis/claudine hip pain/arthritis Multiplanar multiecho imaging of the pelvis was performed without contrast. There is 1.7 cm rounded fluid density in the right adnexal region consistent with ovarian cyst. Urina ry bladder distends smoothly. Sacrum is intact. The pelvic ring is intact. Sacroiliac joints appear n ormal. There is no free fluid in the pelvis. There is apparent hysterectomy. Proximal femurs are intact. There is no evidence of hip dysplasia. There is no sign of avascular necr osis. There is no sign of hip joint effusion. There is no inguinal hernia. There is disc space narrow ing at L4-5 L5-S1. There is no lumbar spinal stenosis. There is no evidence of compression fracture i n the lower lumbar spine. I see no bony destructive process. IMPRESSION: Negative MR scan of the pelvis. Normal hip joints. No evidence of hip dysplasia or avascular necrosis .
== END ==
LOC: RADMRIMAIN 20:39
PROVIDERS: ATTEND Internal Medicine Rheumatology
DX: M25.551 Pain in right hip (principal); M25.552 Pain in left hip; G89.29 Other chronic pain; M25.561 Pain in right knee
CPT/HCPCS: 72195

== ENCOUNTER → 2020-06-13 | Outpatient (CLI) | payer BC | END | disposition home or self-care (01) | LOC: LABWHC1 15:30 | PROVIDERS: ATTEND Family Medicine | DX: Z20.822 Contact with and (suspected) exposure to COVID-19 (principal) | CPT/HCPCS: U0003; C9803 ==

== ENCOUNTER 2020-07-08 23:35 | Observation (INO) | payer BC ==
[2020-07-08] MEDS ORDERED: SODIUM CHLORIDE 0.9% 1,000 ML IV STA ×2 (23:54)
--- NOTE | 2020-07-09 00:21 | ED ---
Arrhythmia/Palpitations HPI - General Chief Complaint: Arrhythmia/Palpitations Stated Complaint: SOB,Chest Pain Time Seen by Provider: 07/08/20 23:51 Source: patient Mode of arrival: wheelchair Limitations: no limitations - Related Data Home Medications Medication Instructions Recorded Confirmed Calcium Carbonate [Tums] 500 mg PO TID PRN 06/07/16 06/09/16 Ibuprofen [Motrin] 800 mg PO TID PRN 06/07/16 06/09/16 L.acidoph,Paracasei, B.lactis 1 cap PO DAILY 06/07/16 06/09/16 [Probiotic] N P Thyroid 30 Mg 30 mg SL HS 06/07/16 06/09/16 N P Thyroid 30 Mg 60 mg SL QAM 06/07/16 06/09/16 Testosterone Pellets 1 dose SUBDERMAL DIRECTED 06/07/16 06/09/16 Previous Rx's Medication Instructions Recorded Acetaminophen-Codeine 300-30mg 1 each PO Q6H PRN #12 tablet 09/15/17 [Tylenol #3] Cyclobenzaprine [Flexeril] 10 mg PO TID #20 tab 09/15/17 Ibuprofen [Motrin] 800 mg PO Q6HR #30 tab 09/15/17 dexAMETHasone [Dexamethasone] 0.75 mg PO DIRECTED #12 tablet 09/15/17 Allergies Allergy/AdvReac Type Severity Reaction Status Date / Time hydrocodone bitartrate Allergy Itching Verified 07/08/20 23:49 [From [place]] latex Allergy Rash/Hives Verified 07/08/20 23:49 sumatriptan [From Imitrex] Allergy numbness Verified 07/08/20 23:49 sumatriptan succinate Allergy numbness Verified 07/08/20 23:49 [From Imitrex] Review of Systems ROS Statement: Those systems with pertinent positive or pertinent negative responses have been documented in the HPI. ROS Other: All systems not noted in ROS Statement are negative. Past Medical History Past Medical History: Fibromyalgia Additional Past Medical History / Comment(s): chronic back pain, "connective tissue issues" History of Any Multi-Drug Resistant Organisms: None Reported Past Surgical History: Cholecystectomy, Hysterectomy Additional Past Surgical History / Comment(s): dermoid removal left ovary Past Anesthesia/Blood Transfusion Reactions: No Reported Reaction Additional Past Anesthesia/Blood Transfusion Reaction / Comment(s): MOTHER = PONV Past Psychological History: No Psychological Hx Reported Smoking Status: Never smoker Past Alcohol Use History: Occasional Past Drug Use History: None Reported - Past Family History Mother Family Medical History: No Reported History Additional Family Medical History / Comment(s): Father CHF, Diabetes Type 2, Kidney Failure General Exam Limitations: no limitations Course Vital Signs 07/08/20 23:45 Temperature 98.3 F Pulse Rate 92 Respiratory 22 Rate Blood Pressure 112/76 O2 Sat by Pulse 100 Oximetry EKG Findings - EKG Comments: EKG Findings:: EKG shows normal sinus rhythm 75 TX 134 QRS 78 QTc 422 Medical Decision Making - Lab Data Result diagrams: 07/09/20 00:29 Lab Results 07/09/20 07/09/20 07/09/20 Range/Units 00:29 00:29 00:29 WBC 5.5 (3.8-10.6) k/uL RBC 3.98 (3.80-5.40) m/uL Hgb 13.3 (11.4-16.0) gm/dL Hct 36.8 (34.0-46.0) % MCV 92.5 (80.0-100.0) fL MCH 33.5 (25.0-35.0) pg MCHC 36.2 (31.0-37.0) g/dL RDW 11.2 L (11.5-15.5) % Plt Count 198 (150-450) k/uL MPV 8.0 Neutrophils % 55 % Lymphocytes % 32 % Monocytes % 9 % Eosinophils % 2 % Basophils % 0 % Neutrophils # 3.0 (1.3-7.7) k/uL Lymphocytes # 1.7 (1.0-4.8) k/uL Monocytes # 0.5 (0-1.0) k/uL Eosinophils # 0.1 (0-0.7) k/uL Basophils # 0.0 (0-0.2) k/uL PT 10.8 (9.0-12.0) sec INR 1.0 (<1.2) APTT 24.5 (22.0-30.0) sec D-Dimer 0.46 (<0.60) mg/L FEU Plasma Lactic Acid Lico 1.6 (0.7-2.0) mmol/L CK-MB (CK-2) (0.0-2.4) ng/mL Troponin I (0.000-0.034) ng/mL NT-Pro-B Natriuret Pep pg/mL 07/09/20 07/09/20 Range/Units 00:29 00:29 WBC (3.8-10.6) k/uL RBC (3.80-5.40) m/uL Hgb (11.4-16.0) gm/dL Hct (34.0-46.0) % MCV (80.0-100.0) fL MCH (25.0-35.0) pg MCHC (31.0-37.0) g/dL RDW (11.5-15.5) % Plt Count (150-450) k/uL MPV Neutrophils % % Lymphocytes % % Monocytes % % Eosinophils % % Basophils % % Neutrophils # (1.3-7.7) k/uL Lymphocytes # (1.0-4.8) k/uL Monocytes # (0-1.0) k/uL Eosinophils # (0-0.7) k/uL Basophils # (0-0.2) k/uL PT (9.0-12.0) sec INR (<1.2) APTT (22.0-30.0) sec D-Dimer (<0.60) mg/L FEU Plasma Lactic Acid Lico (0.7-2.0) mmol/L CK-MB (CK-2) <0.2 (0.0-2.4) ng/mL Troponin I <0.012 (0.000-0.034) ng/mL NT-Pro-B Natriuret Pep 44 pg/mL Disposition Clinical Impression: Tachycardia, Palpitations, Chest pain Narrative: ZA Yen Disposition: ADMITTED IP TO THIS HOSP Condition: Good Is patient prescribed a controlled substance at d/c from ED?: No Referrals: Maya Spence MD [Primary Care Provider] - 1-2 days
[2020-07-09] MEDS ORDERED: DEXAMETHASONE SOD PHOSPHATE 10 MG/ML 1 ML VIAL IV STA (00:51)
[2020-07-09] MEDS ORDERED: KETOROLAC 15 MG/ML 1 ML VIAL IVP STA (00:52)
[2020-07-09] MEDS ORDERED: ASPIRIN-ACET-CAFF 250-250-65MG 1 EACH TAB PO ONE (01:00)
[2020-07-09 01:05] LABS: Basophils % (A) 0 %; Eosinophils # (A) 0.1 k/uL (0-0.7); Eosinophils % (A) 2 %; HCT 36.8 % (34.0-46.0); HGB 13.3 gm/dL (11.4-16.0); Lymphocytes # (A) 1.7 k/uL (1.0-4.8); Lymphocytes % (A) 32 %; MCH 33.5 pg (25.0-35.0); MCHC 36.2 g/dL (31.0-37.0); MCV 92.5 fL (80.0-100.0); Monocytes # (A) 0.5 k/uL (0-1.0); Monocytes % (A) 9 %; Neutrophils % (A) 55 %; Platelet Count 198 k/uL (150-450); RBC 3.98 m/uL (3.80-5.40); RDW 11.2 % (11.5-15.5); WBC 5.5 k/uL (3.8-10.6)
[2020-07-09 01:20] LABS: D-Dimer 0.46 mg/L FEU (<0.60); Partial Thromboplastin Time 24.5 sec (22.0-30.0); Prothrombin Time 10.8 sec (9.0-12.0)
[2020-07-09 01:53] LABS: ALT 17 U/L (4-34); AST 22 U/L (14-36); African American GFR (CKD) >90 (>60 ml/min/1.73 sqM); Albumin 4.1 g/dL (3.5-5.0); Alkaline Phosphatase 44 U/L (38-126); Anion Gap 8 mmol/L; Blood Urea Nitrogen 21 mg/dL (7-17); Calcium 9.6 mg/dL (8.4-10.2); Carbon Dioxide 24 mmol/L (22-30); Chloride 106 mmol/L (98-107); Creatine Kinase 38 U/L (30-135); Glucose 76 mg/dL (74-99); LDH 411 U/L (313-618); Non-African American GFR(CKD) >90 (>60 ml/min/1.73 sqM); Phosphorus 2.6 mg/dL (2.5-4.5); Potassium 3.7 mmol/L (3.5-5.1); Sodium 138 mmol/L (137-145); Total Bilirubin 0.7 mg/dL (0.2-1.3); Total Protein 7.1 g/dL (6.3-8.2)
[2020-07-09 02:22] LABS: Creatine Kinase MB <0.2 ng/mL (0.0-2.4); Troponin I <0.012 ng/mL (0.000-0.034)
[2020-07-09] MEDS ORDERED: NITROGLYCERIN SL TABS 0.4 MG TAB SUBLINGUAL PRN (02:25)
[2020-07-09] MEDS ORDERED: MORPHINE SULFATE 4 MG/ML SYRINGE IV PRN (02:25)
[2020-07-09] MEDS ORDERED: ASPIRIN 81 MG PO STA (02:25)
[2020-07-09 03:16] LABS: C Reactive Protein <5.0 mg/L (<10.0)
--- NOTE | 2020-07-09 05:16 | P.HPIM ---
History of Present Illness H&P Date: 07/09/20 Chief Complaint: palpitations, skip beats 39 year old female , no past medical history, she is following with rheumatology for possible RA, and with neurology for possible MS patient had COVID about a month ago , did not require oxygen or hospitalization . now she tested negative since having covid , she felt short of breath with activities. this has lingered with her, and now she is still limited in her physical activities, however, when she measures her oxygen sat with pulse ox, it looks normal. she comes in today , as she has noticed palpitations and skipped beats. she denies any cardiac history. she denies any leg swelling, she does describe SOB even at rest sometimes, but this in her opinion has worsened since COVID, as she was evaluated last year for some random episodes of SOB. she had PFT done, and was unremarkable . she denies any chronic diarrhea or weight loss, denies any excessive sweating or anxiety / panic attacks . in the ED , her workup was unremarkable , COIVD negative CTA done few days ago , showed residual right lower lung infilterates, no PE (she had elevated d dimer then ) Review of Systems Pertinent positives as noted in HPI. All other systems were reviewed and are negative Past Medical History Past Medical History: Fibromyalgia Additional Past Medical History / Comment(s): chronic back pain, "connective tissue issues" History of Any Multi-Drug Resistant Organisms: None Reported Past Surgical History: Cholecystectomy, Hysterectomy Additional Past Surgical History / Comment(s): dermoid removal left ovary Past Anesthesia/Blood Transfusion Reactions: No Reported Reaction Additional Past Anesthesia/Blood Transfusion Reaction / Comment(s): MOTHER = PONV Past Psychological History: No Psychological Hx Reported Smoking Status: Never smoker Past Alcohol Use History: Occasional Past Drug Use History: None Reported - Past Family History Mother Family Medical History: No Reported History Additional Family Medical History / Comment(s): Father CHF, Diabetes Type 2, Kidney Failure Medications and Allergies Home Medications Medication Instructions Recorded Confirmed Type Calcium Carbonate [Tums] 500 mg PO TID PRN 06/07/16 06/09/16 History Ibuprofen [Motrin] 800 mg PO TID PRN 06/07/16 06/09/16 History L.acidoph,Paracasei, B.lactis 1 cap PO DAILY 06/07/16 06/09/16 History [Probiotic] N P Thyroid 30 Mg 30 mg SL HS 06/07/16 06/09/16 History N P Thyroid 30 Mg 60 mg SL QAM 06/07/16 06/09/16 History Testosterone Pellets 1 dose SUBDERMAL DIRECTED 06/07/16 06/09/16 History Acetaminophen-Codeine 300-30mg 1 each PO Q6H PRN #12 tablet 09/15/17 Rx [Tylenol #3] Cyclobenzaprine [Flexeril] 10 mg PO TID #20 tab 09/15/17 Rx Ibuprofen [Motrin] 800 mg PO Q6HR #30 tab 09/15/17 Rx dexAMETHasone [Dexamethasone] 0.75 mg PO DIRECTED #12 tablet 09/15/17 Rx Allergies Allergy/AdvReac Type Severity Reaction Status Date / Time hydrocodone bitartrate Allergy Itching Verified 07/08/20 23:49 [From [place]] latex Allergy Rash/Hives Verified 07/08/20 23:49 sumatriptan [From Imitrex] Allergy numbness Verified 07/08/20 23:49 sumatriptan succinate Allergy numbness Verified 07/08/20 23:49 [From Imitrex] Physical Exam Vitals: Vital Signs Temp Pulse Resp BP Pulse Ox 07/08/20 23:45 98.3 F 92 22 112/76 100 Intake and Output 07/08/20 07/08/20 07/09/20 14:59 22:59 06:59 Other: Weight 62.596 kg Constitutional: No acute distress, conversant, pleasant Eyes: Anicteric sclerae, moist conjunctiva, Pupils equal round reactive to light ENMT: NC/AT Oropharynx clear, no erythema, or exudates Neck: Supple, FROM, no masses, or JVD No carotid bruits No thyromegaly Lungs: Clear to auscultation Clear to percussion Normal respiratory effort, no accessory muscle use Cardiovascular: Heart regular in rate and rhythm, No murmurs, gallops, or rubs No peripheral edema Abdominal: Soft Nontender, no guarding, rebound or rigidity Abdomen moving with respiration Normoactive bowel sounds No hepatomegaly, No splenomegaly No palpable mass No abdominal wall hernia noted Skin: Normal temperature, tone, texture, turgor No induration No subcutaneous nodules No rash, lesions No ulcers Extremities: No digital cyanosis No clubbing Pedal pulses intact and symmetrical Radial pulses intact and symmetrical No calf tenderness Psychiatric: Alert and oriented to person, place and time Appropriate affect fair judgement Neuro Muscles Strength 5/5 in all 4 extremities Sensation to light touch grossly present throughout Cranial nerves II-XII grossly intact No focal sensory deficits Lymphatics: no palpable cervical or supraclavicular , or inguinal lymph nodes Results CBC & Chem 7: 07/09/20 00:29 07/09/20 00:29 Labs: Abnormal Lab Results - Last 24 Hours (Table) 07/09/20 Range/Units 00:29 RDW 11.2 L (11.5-15.5) % Assessment and Plan Assessment: palpitations rule out afib elevated TSH, free T4 pending monitor and storage bin tender echocardiogram cardiology consult exertional dyspnea post covid pulmonary consult CTA from few days ago reviewed, showing , residual infilterates right lower lungs pulse oxymetry showing 100% on room air continue OP w/u for possible connective tissue disease CODE STATUS:full code DVT prophylaxis: mechanical Discussed with: Patient, ER Anticipated length of stay < than [address]: home A total of 70 minutes was spent on the care of this complex patient more than 50% of the time was spent in counseling and care coordination.
[2020-07-09 07:49] VITALS: RESP 16; TEMP 98.2
[2020-07-09] MEDS ORDERED: LEVOTHYROXINE 25 MCG TAB PO SCH (08:34)
--- NOTE | 2020-07-09 12:09 | P.DS ---
Providers Date of admission: 07/09/20 02:25 Expected date of discharge: 07/09/20 Attending physician: Karina Martinez MD Consults: 07/09/20 02:25 Consult Physician Routine Consulting Provider: Sebastian Camargo Consult Reason/Comments: covidSOB Do you want consulting provider notified?: Yes Consult Physician Urgent Consulting Provider: Leidy Marsh Consult Reason/Comments: cp Do you want consulting provider notified?: Yes [facility] Course: Discharge Diagnosis: Post COVID syndrome Palpitations Elevated TSH- patient take biotin and this will need to be retested FIbromyalgia Hospital Course: Patient is a 39 yo female with a hx of fibromyaliga, connective tissue disorder, abnormal MRI brain being follow by neurology who presented to the hospital with complaints of palpitations and chest tightness with hx of COVID 4 weeks ago. On arrival to the ER her vital signs were within normal limits. EKG was nonischemic. She was admitted. Troponin remained negative. She was seen by cardiology and underwent an echocardiogram which per verbal report from Dr. Jaylene hidalgo showed a preserved ejection fraction with no significant abnormalities. She was determined cleared for discharge from cardiology perspective. She was sent to have a TSH of 8 with a normal T4 however she has been taking biotin which makes this result less reliable. I have encouraged her to get a repeat TSH and free T4 when she has been off of biotin for at least 72 hours. She was seen by pulmonary and cleared for discharge. Recommend follow-up with COVID recover network information given to patient Patient seen and examined at bedside. We had a long discussion about her post Covid symptoms including prolonged fatigue, exertional dyspnea, and chest tightness. She continues to struggle with being able to take a deep breath. She is unable to walk a flight of stairs. She denies any nausea or vomiting. She has yet to return of her sense of taste and smell. 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 Vital signs reviewed and stable. General: non toxic, no distress, appears at stated age Derm: warm, dry Head: atraumatic, normocephalic, symmetric Eyes: EOMI, no lid lag, anicteric sclera Mouth: no lip lesion, mucus membranes moist Cardiovascular: S1S2 reg, no murmur, positive posterior tibial pulse bilateral, Lungs: Decreased breath sounds bilateral, no rhonchi, no rales , no accessory muscle use Abdominal: soft, nontender to palpation, no guarding, no appreciable organomegaly Ext: no gross muscle atrophy, no edema, no contractures Neuro: CN II-XI grossly intact, no focal neuro deficits Psych: Alert, oriented, appropriate affect A total of 25 minutes of time were spent preparing this complex discharge summary . Patient Condition at Discharge: Good Plan - Discharge Summary New Discharge Prescriptions: Continue Omeprazole 20 mg PO DAILY Albuterol Sulfate [Proair Hfa] 2 puff INHALATION RT-QID PRN PRN Reason: Shortness Of Breath Discontinued Vitamin C/Biotin [Hair, Skin and Nails] 1 tab PO DAILY Discharge Medication List Albuterol Sulfate [Proair Hfa] 2 puff INHALATION RT-QID PRN 07/09/20 [History] Omeprazole 20 mg PO DAILY 07/09/20 [History] Follow up Appointment(s)/Referral(s): Maya Spence MD [Primary Care Provider] - 1-2 days Hugh Garcia DO [Doctor of Osteopathic Medicine] - 1 Week Ambulatory/Diagnostic Orders: T4, Free (Free Thyroxine) [LAB.AMB] Location: None Selected TSH, 3rd Generation [LAB.AMB] Time Frame: 1 Week, Location: None Selected Patient Instructions/Handouts: Chest Pain (DC) Activity/Diet/Wound Care/Special Instructions: Activity: as tolerated Diet: regular Special Instructions: Repeat TSH with 72 hours off all vitamins and supplements [facility] COVID [phone] U M Pulse [phone] Discharge Disposition: HOME SELF-CARE
--- NOTE | 2020-07-09 12:30 | P.CNPUL ---
History of Present Illness Consult date: 07/09/20 Requesting physician: Karina Martinez Reason for consult: dyspnea, cough, chest pain Chief complaint: Chest pain and shortness of breath. History of present illness: 39-year-old female, who sees a number different doctors including a machine trimmer, and neurologist, as well as her primary care provider. The patient apparently had an episode of COVID 19 infection about one month ago. The patient was not hospitalized. The patient did not require any oxygen therapy. More recently, she has tested negative. She complains of chronic shortness of breath, chest pain, and cough since the episode of COVID 19 infection. The patient has seen a lung doctor in the past, a Dr. Castorena, who I actually trained at [facility]. This was in early 2019, right before the pain started. The patient apparently had a number of tests at that time, but was told, that no specific diagnosis could be made. The patient presented to the emergency department yesterday, complained of pain in the chest, and shortness of breath. She also apparently was complaining of palpitations, skipped beat, and a dry nonproductive cough. No fever, chills, or weight loss. The patient recently had a computed tomography scan of the chest, which was essentially unremarkable. There was no evidence of pulmonary embolism. I told the patient, I would see her in the office, in the outpatient setting, to do a dditional testing. This would include, a high resolution computed tomography scan, ALLERGY testing, pulmonary function tests, etc. Current laboratory data includes a white count of 5.5, hemoglobin 13.3, hematocrit 36.8, and a platelet count of 198,000. PT, INR, PTT, and d-dimer were all normal. Electrolytes are normal. BUN was 21, with a creatinine of 0.59. Cardiac enzymes were negative 3. TSH was 8.520. The TSH was elevated. Her coronavirus test was negative. Review of Systems REVIEW OF SYSTEMS: CONSTITUTIONAL: [Negative.] NEUROLOGIC: Anxiousness. HEENT: [ Negative.] CARDIAC: Palpitations. PULMONARY: Shortness of breath, cough, chest tightness. GI: [Negative.] : [Negative.] RHEUMATOLOGIC: [ Negative.] IMMUNOLOGIC: [ Negative.] ENDOCRINE: [Negative. ] DERMATOLOGIC: [Negative.] Past Medical History Past Medical History: Fibromyalgia Additional Past Medical History / Comment(s): chronic back pain, "connective tissue issues" History of Any Multi-Drug Resistant Organisms: None Reported Past Surgical History: Cholecystectomy, Hysterectomy Additional Past Surgical History / Comment(s): dermoid removal left ovary Past Anesthesia/Blood Transfusion Reactions: No Reported Reaction Additional Past Anesthesia/Blood Transfusion Reaction / Comment(s): MOTHER = PONV Past Psychological History: No Psychological Hx Reported Smoking Status: Never smoker Past Alcohol Use History: Occasional Additional Past Alcohol Use History / Comment(s): SMOKED FOR 2 YEARS, QUIT 15 YEARS AGO. Past Drug Use History: None Reported - Past Family History Mother Family Medical History: No Reported History Additional Family Medical History / Comment(s): Father CHF, Diabetes Type 2, Kidney Failure Medications and Allergies Home Medications Medication Instructions Recorded Confirmed Type Albuterol Sulfate [Proair Hfa] 2 puff INHALATION RT-QID PRN 07/09/20 07/09/20 History Omeprazole 20 mg PO DAILY 07/09/20 07/09/20 History Allergies Allergy/AdvReac Type Severity Reaction Status Date / Time latex Allergy Rash/Hives Verified 07/09/20 07:57 hydrocodone bitartrate AdvReac Itching Verified 07/09/20 07:57 [From [place]] sumatriptan [From Imitrex] AdvReac numbness Verified 07/09/20 07:57 sumatriptan succinate AdvReac numbness Verified 07/09/20 07:57 [From Imitrex] Physical Exam Osteopathic Statement: *. No significant issues noted on an osteopathic structural exam other than those noted in the History and Physical/Consult. Vitals: Vital Signs Temp Pulse Pulse Resp BP BP Pulse Ox 07/09/20 07:35 98.2 F 82 16 110/67 100 07/09/20 07:10 98.3 F 99 18 95/56 99 07/08/20 23:45 98.3 F 92 22 112/76 100 Intake and Output 07/08/20 07/09/20 07/09/20 22:59 06:59 14:59 Other: Voiding Method Toilet Weight 62.596 kg No acute distress, oriented 3. HEENT examination is grossly unremarkable. Mucous membranes are moist. No oral lesions. Neck supple. Full range of motion. No adenopathy thyromegaly or neck vein distention. Cardiovascular examination reveals regular rhythm rate. S1-S2 normal. No S3 or S4. No discernible murmur noted. Heart rate is 82 bpm. Lungs reveal clear breath sounds. Her sounds are equal bilaterally. No adventitious lung sounds including wheezes rhonchi or crackles. Abdomen soft bowel sounds are heard. No masses or tenderness. Extremities are intact. No cyanosis clubbing or edema. Skin is without rash or lesion. Neurologic examination is brief but nonfocal. Results - Laboratory Findings CBC and BMP: 07/09/20 00:29 07/09/20 00: PT/INR, D-dimer PT 10.8 sec (9.0-12.0) 07/09/20: INR 1.0 (<1.2) 07/09/20: D-Dimer 0.46 mg/L FEU (<0.60) 07/09/20 00:29 Abnormal lab findings: Abnormal Labs 07/09/20 07/09/20 00: 00:29 RDW 11.2 L BUN 21 H TSH 8.520 H - Diagnostic Findings Chest x-ray: image reviewed CT scan - chest: image reviewed Assessment and Plan Assessment: Shortness of breath, and chest discomfort, and dry nonproductive cough, of unclear etiology. This could relate to post COVID pulmonary fibrosis. Vague history of fibromyalgia. Vague history of potential connective tissue disease. Lifelong nonsmoker. Possible acute anxiety. Hypothyroidism. Plan: Plan dated 07/09/2020. The patient seems to have lots of residual symptoms and issues subsequent to her COVID 19 pneumonia. Her most recent computed tomography scan showed some residual groundglass opacities at the right lung base. 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 The patient apparently was evaluated by high lift driver in the past, may be in early 2019. No specific diagnosis was made. She is also seeing a neurologist, and machine trimmer. She seems rather anxious to me. Some of these issues could relate to psychosomatic issues. Nonetheless, I will see her in the office, and do a thorough evaluation, to make sure that there is nothing wrong with the lungs. Time with Patient: Greater than 30
--- NOTE | 2020-07-09 13:18 | XR ---
EXAMINATION TYPE: XR chest 2V DATE OF EXAM: 07/09/2020 COMPARISON: 05/02/2019 INDICATION: Short of breath TECHNIQUE: Frontal and lateral views of the chest are obtained. FINDINGS: The heart size is normal. The pulmonary vasculature is normal. The lungs are clear. IMPRESSION: 1. No acute pulmonary process.
[2020-07-09 14:13] VITALS: BP 94/50; PULSE 72
--- NOTE | 2020-07-09 15:56 | CONS ---
CONSULTATION This is a 39-year-old lady with a history of COVID infection, probable pneumonia about a month ago. Came into the hospital complaining of palpitation and also chest pain. Pain is sharp in nature. Also has some shortness of breath. The quality of the pain is very atypical. Vitals are stable. Troponins are normal. She is resting comfortably without symptoms at the time of my evaluation. I have reviewed the testing that was performed here. She had a CT angiogram about 10 days ago which revealed no evidence of pulmonary embolism, but there was some infiltrative process noted. I am recommending an echocardiogram and I have reviewed it. The echo is basically unremarkable. She may have some underlying fibrosis. I am recommending a chest x-ray to be performed. Echocardiogram revealed normal systolic function. No abnormality on the Doppler and no pulmonary hypertension. PAST MEDICAL HISTORY: 1. Fibromyalgia. 2. Covid pneumonia that was about almost 1 month ago. She has also seen a opal polisher at [facility]. Details unavailable. PHYSICAL EXAMINATION: VITAL SIGNS: Blood pressure is 118/70, pulse rate is 80 per minute and regular. HEENT: Unremarkable. Fundus was not examined by me. NECK: Supple. No JVD. I do not hear a carotid bruit. HEART: Exam reveals S1, S2 heard normally. No significant rub, murmur or gallop. LUNGS: Clear after coughing but prior to that I heard a few rales, but I do not think it is significant. There are no significant rales to suggest pulmonary fibrosis. ABDOMEN: Soft, nontender. EXTREMITIES: Lower extremities reveal normal pulses. CENTRAL NERVOUS SYSTEM: Normal. EKG is unremarkable. Troponins are normal. Echocardiogram revealed normal systolic function with no pulmonary hypertension. IMPRESSION: 1. Atypical chest pain. 2. Shortness of breath, could be related to post COVID syndrome. Rule out pulmonary fibrosis. 3. Anxiety. 4. Palpitations. RECOMMENDATIONS: I have not seen any significant arrhythmia. We will continue telemetry until tomorrow and she can be discharged after that. I will follow her in the office as an outpatient. I am recommending a full pulmonary evaluation as well. Thank you very much for the consult. MMODL / IJN: [id number] /
--- NOTE | 2020-07-10 08:01 | ECHOF ---
Referral Reason: MEASUREMENTS -------- HEIGHT: 165.1 cm WEIGHT: 62.6 kg BP: IVSd: 0.9 cm (0.6 - 1.1) LVIDd: 3.8 cm (3.9 - 5.3) LVPWd: 1.1 cm (0.6 - 1.1) IVSs: 1.0 cm LVIDs: 2.6 cm LVPWs: 1.1 cm Ao Diam: 2.3 cm (2.0 - 3.7) AV Cusp: 1.7 cm (1.5 - 2.6) MV EXCURSION: 15.879 mm (> 18.000) MV EF SLOPE: 79 mm/s (70 - 150) EPSS: 0.2 cm MV E John: 0.81 m/s MV DecT: 254 ms MV A John: 1.15 m/s MV E/A Ratio: 0.71 RAP: 5.00 mmHg RVSP: 14.84 mmHg FINDINGS -------- Sinus rhythm. This was a technically good study. LV size, wall thickness and systolic function are normal, with an EF greater than 55%. The left navid tricular size is normal. The right ventricle is normal in size. The left atrial size is normal. The right atrial size is normal. The aortic valve is trileaflet, and appears structurally normal. No aortic stenosis or regurgitation. There is trace mitral regurgitation. Mild tricuspid regurgitation present. Right ventricular systolic pressure is normal at < 35 mmHg. There is no pulmonic regurgitation present. The aortic root size is normal. There is no pericardial effusion. CONCLUSIONS -------- 1. LV size, wall thickness and systolic function are normal, with an EF greater than 55%. 2. The left ventricular size is normal. 3. The right ventricle is normal in size. 4. The left atrial size is normal. 5. The right atrial size is normal. 6. The aortic valve is trileaflet, and appears structurally normal. No aortic stenosis or regurgitati on. 7. There is trace mitral regurgitation. 8. Mild tricuspid regurgitation present. 9. The aortic root size is normal. 10. There is no pericardial effusion. [employer]ER [employer] SUPERVISOR: Margoth Morataya RDCS
[2020-07-10] MEDS ORDERED: ASPIRIN 325 MG TAB PO SCH (09:00)
== END 2020-07-09 14:24 | disposition home or self-care (01) ==
LOC: EC 23:35 → 6NMEDSUR 07-09 02:25
PROVIDERS: ADMIT Internal Medicine; ATTEND Internal Medicine
DX: R07.89 Other chest pain (principal); R00.2 Palpitations; Z86.16 Personal history of COVID-19; R06.02 Shortness of breath; R06.09 Other forms of dyspnea; R53.83 Other fatigue; R05 Cough; R00.0 Tachycardia, unspecified; Z79.890 Hormone replacement therapy; Z88.5 Allergy status to narcotic agent; Z88.8 Allergy status to other drugs, medicaments and biological substances; Z91.040 Latex allergy status; M79.7 Fibromyalgia; G89.29 Other chronic pain; M54.9 Dorsalgia, unspecified; E03.9 Hypothyroidism, unspecified; F41.9 Anxiety disorder, unspecified; Z79.899 Other long term (current) drug therapy; R94.6 Abnormal results of thyroid function studies; Z87.891 Personal history of nicotine dependence; Z87.01 Personal history of pneumonia (recurrent); Z90.49 Acquired absence of other specified parts of digestive tract; Z90.710 Acquired absence of both cervix and uterus; Z82.49 Family history of ischemic heart disease and other diseases of the circulatory system; Z83.3 Family history of diabetes mellitus; Z84.1 Family history of disorders of kidney and ureter; Z20.822 Contact with and (suspected) exposure to COVID-19
CPT/HCPCS: 96361 ×2; 96374; 96375; 99285; 36415; 93005; 93306; 85379; 84439; 83880; 80053; 82550; 82553; 83605; 83615; 83735; 84100; 84443; 84484; 85025; 85610; 85730; 86140; 87635; 71046; G0378; J1100; J1885

== ENCOUNTER → 2020-08-19 | Outpatient (CLI) | payer BC ==
--- NOTE | 2020-08-30 09:11 | HM ---
This is a report on the 48 hour Holter monitor. Baseline EKG showed sinus rhythm with an average heart rate of 65. Minimal rate is 40 and maximum heart rate is 123. Patient had episodes of sinus arrhythmia. Rare APCs and rare PVCs were noted. Patient had several symptoms including dizziness, lightheadedness, near fainting. Symptoms have poor correlation with cardiac events. Final impression: #1. Sinus rhythm. #2 episodes of sinus bradycardia and sinus arrhythmia #3. Occasional APCs. #4. Occasional PVCs. #5. Patient had several symptoms including dizziness, lightheadedness, chest heaviness without any significant correlation with cardiac events MTDD
== END | disposition home or self-care (01) ==
LOC: RADECHMAIN 12:02
PROVIDERS: ATTEND Family Medicine
DX: R00.1 Bradycardia, unspecified (principal); I49.8 Other specified cardiac arrhythmias; I49.3 Ventricular premature depolarization; I49.1 Atrial premature depolarization
CPT/HCPCS: 93225; 93226

== ENCOUNTER → 2020-10-11 | Outpatient (CLI) | payer BC ==
--- NOTE | 2020-10-11 10:00 | CT ---
EXAMINATION TYPE: CT chest wo con DATE OF EXAM: 10/11/2020 COMPARISON: 06/29/2020 HISTORY: Pneumonia CT DLP: 265.2 mGycm High-resolution noncontrast CT of the chest was performed with the patient in the prone and supine po sitions. Lung and mediastinal window settings are submitted. The lungs appear to be well-aerated. I do not see evidence for fibrotic change. There is no eviden ce for bronchiectasis, groundglass infiltrate, or mass. No evidence for airspace consolidation. Stab le pleural-based 4 mm pulmonary nodule left lower lobe. No pleural effusion is identified. I do not see evidence for hilar or mediastinal mass or adenopathy. IMPRESSION: Stable pleural-based 4 mm pulmonary nodule left lower lobe. Otherwise no significant abno rmality appreciated.
== END | disposition home or self-care (01) ==
LOC: RADCTMAIN 08:55
PROVIDERS: ATTEND Nurse Practitioner Adult Health
DX: R91.1 Solitary pulmonary nodule (principal)
CPT/HCPCS: 71250

== ENCOUNTER → 2020-11-17 | Day surgery (SDC) | payer BC ==
[2020-11-15 14:45] VITALS: BMI 21.7
[~2020-11-17] MED LIST changes: -DEXAMETHASONE SOD PHOSPHATE 10 MG/ML 1 ML VIAL IV ONE; -FAMOTIDINE 20 MG/2 ML VIAL IV PRN; -HYDROmorphone 1 MG/ML 1 ML SYRINGE IVP PRN; -LIDOCAINE 1% 20 ML VIAL (10MG/ML) FOR IV START INTRADERMA PRN; -MIDAZOLAM 2 MG/2 ML VIAL IV PRN; -SCOPOLAMINE 1.5MG/72HR PATCH TRANSDERM ONE; +SODIUM CHLORIDE 0.9% 1,000 ML IV SCH; +SODIUM CHLORIDE 0.9% 500 ML 500 ML IV ONE; -ceFAZolin 2 GM in SODIUM CHLORIDE 0.9% 100 ML IVPB ONE
[2020-11-17 10:04] VITALS: BP 109/65; RESP 16; TEMP 98.9
[2020-11-17 11:55] VITALS: PULSE 72
--- NOTE | 2020-11-17 13:39 | P.EPPROC ---
- EP Procedure Note Electrophysiology Procedure Note: Diagnosis Recurrent presyncope Twelve-lead EKG shows sinus rhythm normal RI narrow QRS early repolarization abnormality inferolaterally No epsilon waves no delta waves normal ST segments Patient was tilted upright at an angle of 70 per protocol Baseline blood pressure in the supine position 97/68 mmHg, heart rate 87 beats a minute Heart rate and blood pressure remained unchanged throughout the procedure At the end of the procedure she was laid supine once again No symptoms, no syncope Impression Normal 12-lead EKG with a normal variation in ST segments with early repolarization abnormality lateral leads Low normal blood pressure No evidence for neurocardiogenic syncope or postural tachycardia syndrome
== END ==
LOC: CATHEP 09:24
PROVIDERS: ATTEND Internal Medicine Clinical Cardiac Electrophysiology
DX: R42 Dizziness and giddiness (principal); R06.02 Shortness of breath; I49.1 Atrial premature depolarization; I49.3 Ventricular premature depolarization; Z86.16 Personal history of COVID-19; G90.1 Familial dysautonomia [Riley-Day]; Z82.49 Family history of ischemic heart disease and other diseases of the circulatory system; Z88.5 Allergy status to narcotic agent; Z88.8 Allergy status to other drugs, medicaments and biological substances; Z91.040 Latex allergy status
CPT/HCPCS: 93660

== ENCOUNTER → 2021-06-10 | Outpatient (CLI) | payer BC ==
[2021-06-10 16:57] LABS: Basophils # (A) 0.03 X 10*3/uL (0.00-0.10); Basophils % (A) 0.6 %; Eosinophils # (A) 0.09 X 10*3/uL (0.04-0.35); Eosinophils % (A) 1.9 %; HCT 41.7 % (37.2-46.3); HGB 13.7 g/dL (12.0-15.0); Immature Grans, Automated 0.2 %; Lymphocytes # (A) 1.46 X 10*3/uL (0.90-5.00); MCH 31.9 pg (27.0-32.0); MCHC 32.9 g/dL (32.0-37.0); Mean Platelet Volume 10.8 fL (9.5-12.2); Monocytes # (A) 0.43 X 10*3/uL (0.20-1.00); Monocytes % (A) 8.8 %; NRBC Per 100 WBC 0 /100 WBCS (0.0-0.0); Neutrophils # (A) 2.84 X 10*3/uL (1.80-7.70); Neutrophils % (A) 58.5 %; Platelet Count 223 X 10*3/uL (140-440); RDW 11.4 % (11.5-14.5); WBC 4.86 X 10*3/uL (4.50-10.00)
[2021-06-10 17:12] LABS: Albumin 4.4 g/dL (3.8-4.9); Albumin/Globulin Ratio 1.71 (1.60-3.17); Anion Gap 9.1 mmol/L (10.00-18.00); BUN/Creat Ratio 19.39 Ratio (12.00-20.00); Blood Urea Nitrogen 14.6 mg/dL (9.0-27.0); Calcium 9.3 mg/dL (8.7-10.3); Carbon Dioxide 25.7 mmol/L (20.0-27.5); Globulin 2.5 g/dL (1.6-3.3); Non-African American GFR(CKD) 99.2 (60.0-200.0); Potassium 4.2 mmol/L (3.5-5.5); Total Bilirubin 1.4 mg/dL (0.30-1.20); Total Protein 6.9 g/dL (6.2-8.2)
== END | disposition home or self-care (01) ==
LOC: LABWHC1 11:42
PROVIDERS: ATTEND Family Medicine
DX: M79.10 Myalgia, unspecified site (principal)
CPT/HCPCS: 36415; 80053; 82180; 82390; 82525; 82607; 84630; 85025

== ENCOUNTER → 2021-10-27 | Outpatient (CLI) | payer BC ==
--- NOTE | 2021-10-27 11:16 | CT ---
EXAMINATION TYPE: CT chest w con DATE OF EXAM: 10/27/2021 COMPARISON: 10/11/2020 and 06/29/2020 HISTORY: 40-year-old female R91.1, Localized enlarged lymph nodes TECHNIQUE: Contiguous axial scanning of the chest after the administration of 70 mL of Isovue 300. C oronal/sagittal reconstructions performed. CT DLP: 158.0mGycm. Automatic exposure control utilized for a dose reduction. FINDINGS: Heart normal size without pericardial effusion. Aorta normal caliber with a conventional arch was a branching anatomy. No thoracic lymphadenopathy by CT size criteria. No consolidation or pleural effusion. A 5 mm subpleural pulmonary nodule lateral left lower lobe nita ins unchanged back to 06/29/2020. Visualized upper abdomen shows cholecystectomy clips and moderate stool burden. Bones: Mild degenerative change at the joint along the midsternal body. There is fusion across the st ernomanubrial joint. IMPRESSION: Unchanged 5 mm subpleural pulmonary nodule lateral left lower lobe compared to 06/29/2020. A benign et iology is suggested. An additional one-year follow-up can be performed.
== END | disposition home or self-care (01) ==
LOC: RADCTMAIN 08:06
PROVIDERS: ATTEND Internal Medicine Critical Care Medicine
DX: R91.1 Solitary pulmonary nodule (principal)
CPT/HCPCS: 71260; Q9967

== ENCOUNTER → 2024-06-18 | Outpatient (CLI) | payer BC ==
[2024-06-18 15:23] LABS: Basophils # (A) 0.03 X 10*3/uL (0.00-0.10); Basophils % (A) 0.6 %; Eosinophils # (A) 0.08 X 10*3/uL (0.04-0.35); Eosinophils % (A) 1.6 %; HCT 40.6 % (37.2-46.3); HGB 13.7 g/dL (12.0-15.0); Lymphocytes # (A) 1.38 X 10*3/uL (0.90-5.00); Lymphocytes % (A) 27.2 %; MCH 32.7 pg (27.0-32.0); MCHC 33.7 g/dL (32.0-37.0); MCV 96.9 FL (80.0-97.0); Mean Platelet Volume 10.8 FL (9.5-12.2); Monocytes # (A) 0.38 X 10*3/uL (0.20-1.00); Monocytes % (A) 7.5 %; NRBC Per 100 WBC 0 X 10*3/uL (0.00-0.01); Neutrophils # (A) 3.19 X 10*3/uL (1.80-7.70); Neutrophils % (A) 62.7 %; Platelet Count 212 X 10*3/uL (140-440); RBC 4.19 X 10*6/uL (4.10-5.20); RDW 11.4 % (11.5-14.5); WBC 5.08 X 10*3/uL (4.50-10.00)
== END | disposition home or self-care (01) ==
LOC: LABPAT 08:53
PROVIDERS: ATTEND Obstetrics & Gynecology
DX: Z01.812 Encounter for preprocedural laboratory examination (principal); R10.2 Pelvic and perineal pain
CPT/HCPCS: 85025

== ENCOUNTER 2024-06-26 06:48 | Day surgery (SDC) | payer BC ==
[2024-06-23 10:25] VITALS: BMI 23.8
[~2024-06-26 06:48] MED LIST changes: +Pre Op ABX Message 1 EACH MISC MISCELLANE ONE; -SODIUM CHLORIDE 0.9% 1,000 ML IV SCH; -SODIUM CHLORIDE 0.9% 500 ML 500 ML IV ONE
[2024-06-26] MEDS ORDERED: fentaNYL (PF) 50 MCG/ML 2 ML AMP IV PRN (07:00)
[2024-06-26] MEDS ORDERED: MIDAZOLAM 2 MG/2 ML VIAL IV PRN (07:00)
[2024-06-26] MEDS: IV FLUID CONTINUATION 1,000 ML IV ONE (07:22)
[2024-06-26] MEDS: DEXAMETHASONE SOD PHOSPHATE 4 MG/ML 1 ML VIAL IV ONE (07:40)
[2024-06-26] MEDS: SCOPOLAMINE 1 MG/72 HR PATCH TRANSDERM ONE (07:40)
[2024-06-26] MEDS: LACTATED RINGERS 1,000 ML IV SCH (07:41)
[2024-06-26] MEDS: ONDANSETRON 4 MG/2 ML VIAL IVP ONE (07:41)
[2024-06-26] MEDS: FAMOTIDINE 20 MG/2 ML VIAL IV STA (07:52)
[2024-06-26] MEDS ORDERED: GLYCOPYRROLATE 0.2 MG/ML 2 ML VIAL ONE (08:30)
[2024-06-26] MEDS ORDERED: fentaNYL (PF) 50 MCG/ML 2 ML AMP ONE (08:30)
[2024-06-26] MEDS ORDERED: LIDOCAINE 1% INJ 10MG/ML (20 ML MDV) ONE (08:30)
[2024-06-26] MEDS ORDERED: PROPOFOL 10 MG/ML 20 ML VIAL IV ONE (08:30)
[2024-06-26] MEDS ORDERED: HYDROmorphone (PF) 1 MG/ML ONE (08:30)
[2024-06-26] MEDS ORDERED: NEOSTIGMINE 1 MG/ML 10 ML VIAL ONE (08:30)
[2024-06-26] MEDS ORDERED: ROCURONIUM 10 MG/ML (5 ML VIAL) IV ONE (08:30)
[2024-06-26] MEDS ORDERED: SUCCINYLCHOLINE CHLORIDE 200 MG/10 ML VIAL IV ONE (08:30)
[2024-06-26] MEDS: BUPIVACAINE (PF) 0.5% 30 ML VIAL SQ ONE (08:50)
[2024-06-26 09:25] VITALS: TEMP 97.2
[2024-06-26] MEDS ORDERED: SIMETHICONE 80 MG CHEWABLE PO PRN (09:27)
[2024-06-26] MEDS ORDERED: ONDANSETRON 4 MG/2 ML VIAL IVP PRN (09:27)
[2024-06-26] MEDS ORDERED: IBUPROFEN 600 MG TAB PO PRN (09:27)
[2024-06-26] MEDS ORDERED: diphenhydrAMINE 50 MG/ML 1 ML VIAL IVP PRN (09:27)
[2024-06-26] MEDS ORDERED: METOCLOPRAMIDE 5 MG/ML 2 ML VIAL IVP PRN (09:27)
[2024-06-26] MEDS ORDERED: ACETAMINOPHEN TAB 325 MG TAB PO PRN (09:27)
[2024-06-26] MEDS ORDERED: diphenhydrAMINE 25 MG CAP PO PRN (09:27)
[2024-06-26] MEDS ORDERED: KETOROLAC 15 MG/ML 1 ML VIAL IVP PRN (09:27)
[2024-06-26] MEDS ORDERED: LACTATED RINGERS 1,000 ML IV SCH (09:30)
[2024-06-26] MEDS: KETOROLAC 15 MG/ML 1 ML VIAL IVP STA (09:31)
--- NOTE | 2024-06-26 09:34 | P.OP ---
Date of Procedure: 06/26/24 Preoperative Diagnosis: #1. Pelvic pain #2. Left hydrosalpinx Postoperative Diagnosis: #1. Normal pelvic findings Procedure(s) Performed: #1. Diagnostic laparoscopy #2. Laparoscopic bilateral salpingectomy Anesthesia: LELA Surgeon: Cuauhtemoc Meyers Estimated Blood Loss (ml): 5 IV fluids (ml): 500 Urine output (ml): 200 Pathology: other (Bilateral fallopian tubes) Condition: stable Disposition: PACU Operative Findings: Preoperative pelvic examination demonstrated a normal pelvic exam with uterus being surgically absent. The adnexa were nonpalpable with no evidence of mass on exam. Intraoperatively, the bilateral tubes and ovaries were entirely normal to inspection with no evidence of hydrosalpinx on either side. There was a small amount of clear straw-colored fluid in the cul-de-sac. There was no evidence of pathology to include endometriosis. The small and large bowel as well as the appendix were normal to inspection. The liver and diaphragm appeared normal. There was some adhesions between the omentum and the anterior abdominal wall primarily in the right upper quadrant from her previous cholecystectomy. Description of Procedure: Patient was prepped and draped in usual fashion after general endotracheal anesthesia was administered by the anesthesiologist. A sponge stick was placed in the vagina for potential manipulation intraoperatively and the bladder was catheterized for approximately 200 mL of clear carlos urine. Attention was turned to the abdomen where a 5 mm incision was made in a pre-existing scar just underneath the umbilicus in the transverse plane along insertion of a 5 mm optical port under direct visualization without difficulty. A pneumoperitoneum was established and Trendelenburg positioning utilized. A site was selected approximately 10 to 12 cm lateral to the optical port and several centimeters below where a 8 mm incision was made in the transverse plane allowing insertion of an 8 mm optical port under direct visualization without difficulty. A mirroring port was placed with a 5 mm trocar in the right lower quadrant. Grasper was placed through the right lower quadrant port and the fimbriated end of the tube elevated. A LigaSure device was utilized to remove the entire tube leaving infundibulopelvic ligament undisturbed. The tube was removed through the the right lower quadrant port without difficulty. The grasper was then trad ed to the left side and the right fallopian tube elevated in a similar operation carried out without difficulty. Having removed both tubes, the remainder of the pelvis was inspected and there was no evidence of pathology as noted above. There was some clear straw-colored fluid in the cul-de-sac. The appendix was entirely normal as noted above as was the upper abdomen aside from the adhesions between the anterior abdominal wall and the omentum most likely from her previous cholecystectomy. After ensuring no other pathology, all instrumentation was removed and the pneumoperitoneum completely evacuated through the 3 ports. The ports were removed and the skin incisions closed with interrupted subcuticular stitches of 4-0 Vicryl followed by half-inch Steri- Strips placed with Mastisol. The 3 incisions were infused with a total of 10 mL of half percent Marcaine without epinephrine, equally divided between the 3 ports. Estimated blood loss for the case was 5 mL or less. There were no c omplications. All sponge, instrument, and needle counts were correct. The patient tolerated the procedure well and proceeded to the recovery room in stable condition.
[2024-06-26 10:33] VITALS: RESP 16
[2024-06-26] MEDS: LACTATED RINGERS 1,000 ML IV ONE (11:33)
[2024-06-26 13:08] VITALS: BP 103/64; PULSE 64
== END 2024-06-26 13:12 | disposition home or self-care (01) ==
LOC: OR 06:48
PROVIDERS: ATTEND Obstetrics & Gynecology
DX: N70.11 Chronic salpingitis (principal); R10.2 Pelvic and perineal pain; E03.9 Hypothyroidism, unspecified
CPT/HCPCS: 88302; 58661; J0330; J1100; J2710; J2405; J2003; J3010; J3490; J1171; J1885; J2704; J0665; J1596